=== PATIENT | male | born 1990 | race African-American/Black ===

== ENCOUNTER 2019-09-09 11:33 | Day surgery (SDC) | payer OTHER ==
[~2019-09-09] VITALS: Ht 157.5 cm; Wt 48.3 kg
[~2019-09-09 11:33] MED LIST: EPINEPHRINE 1 MG/ML, 1ML ONE; LIDOCAINE 1%, 20ML ONE; ROPIvacaine/PF 0.5%, 30 ML ONE
[2019-09-09] MEDS ORDERED: CHLORHEXIDINE 15 ML UDC MM STA (11:47)
[2019-09-09] MEDS ORDERED: CHLORHEXIDINE 15 ML UDC ONE (11:55)
[2019-09-09 11:56] VITALS: BP 114/75
[2019-09-09] MEDS ORDERED: PLEASE ENTER ALLERGIES MC SCH (12:00)
[2019-09-09] MEDS ORDERED: PLEASE ENTER HEIGHT AND WEIGHT MC SCH (12:00)
[2019-09-09] MEDS ORDERED: NO MEDS PER PT (12:17)
[2019-09-09] MEDS ORDERED: FENTANYL PF 250 MCG/5ML ONE (12:33)
[2019-09-09] MEDS ORDERED: MIDAZOLAM 1 MG/ML, 2ML ONE (12:33)
[2019-09-09] MEDS ORDERED: CEFAZOLIN 1,000 MG ONE ×2 (12:41)
[2019-09-09] MEDS ORDERED: PROPOFOL 10 MG/ML, 20ML ONE (12:41)
[2019-09-09] MEDS ORDERED: morphine SULFATE 10 MG/ML, 1ML IVPush PRN (13:00)
[2019-09-09] MEDS ORDERED: LACTATED RINGERS 1,000 ML IV SCH (13:00)
[2019-09-09] MEDS ORDERED: ONDANSETRON 2MG/ML, 2ML IVPush PRN (13:00)
[2019-09-09] MEDS ORDERED: MEPERIDINE/PF 25MG/0.5ML IVPush PRN (13:00)
[2019-09-09] MEDS ORDERED: ACETAMINOPHEN 325 MG TABLET PO PRN ×2 (13:00→14:30)
[2019-09-09] MEDS ORDERED: HYDROmorphone 1 MG/ML, 1ML INJ IVPush PRN (13:00)
[2019-09-09] MEDS ORDERED: KETOROLAC 30 MG/1 ML ONE (13:13)
[2019-09-09] MEDS ORDERED: ACETAMINOPHEN 650 MG/20.3 ML UDC ONE (14:05)
[2019-09-09] MEDS ORDERED: ACETAMINOPHEN 325 MG TABLET ONE (14:05)
[2019-09-09] MEDS ORDERED: FENTANYL PF 100 MCG/2ML ONE (14:05)
[2019-09-09] MEDS ORDERED: OXYcodone 5 MG/5 ML ORAL.SOL UDC ONE (14:05)
[2019-09-09] MEDS: OXYcodone 5 MG/5 ML ORAL.SOL UDC PO PRN ×2 (14:10→15:17)
[2019-09-09] MEDS: FENTANYL PF 100 MCG/2ML IV PRN ×2 (14:10→14:25)
[2019-09-09] MEDS ORDERED: MEPERIDINE/PF 25MG/ML,1ML ONE (14:35)
== END 2019-09-09 16:00 | disposition home or self-care (01) ==
LOC: OUT 11:33
PROVIDERS: ATTEND Orthopaedic Surgery
DX: S83.282A Other tear of lateral meniscus, current injury, left knee, initial encounter (principal); Z11.59 Encounter for screening for other viral diseases; M67.52 Plica syndrome, left knee; M65.862 Other synovitis and tenosynovitis, left lower leg; J45.909 Unspecified asthma, uncomplicated; Z82.49 Family history of ischemic heart disease and other diseases of the circulatory system; X50.1XXA Overexertion from prolonged static or awkward postures, initial encounter; Y93.89 Activity, other specified; Y92.89 Other specified places as the place of occurrence of the external cause; Y99.8 Other external cause status
CPT/HCPCS: 29881; J0171; J0690; J1885; J2175; J2250; J2704; J2795; J3010; J7120; U0001